=== PATIENT | female | born 2005 | race Caucasian/White ===

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

== ENCOUNTER 2024-04-22 20:42 | Emergency (ER) | payer OTHER ==
[2024-04-22 20:46] VITALS: BP 126/81; PULSE 80; RESP 18; TEMP 98.3; BMI 34.6
[2024-04-22 21:39] LABS: PH,URINE 6.5 (5.0-8.0); URINE APPEARANCE CLEAR; URINE BILIRUBIN NEGATIVE (NEGATIVE); URINE COLOR YELLOW; URINE GLUCOSE (UA) NEGATIVE (NEGATIVE); URINE KETONE NEGATIVE (NEGATIVE); URINE LEUK ESTERASE NEGATIVE (NEGATIVE); URINE NITRITE NEGATIVE (NEGATIVE); URINE PROTEIN NEGATIVE (NEGATIVE)
[2024-04-22 21:42] LABS: HCG,QUALITATIVE URINE Negative
== END 2024-04-22 22:23 | disposition home or self-care (01) ==
LOC: JERFT 20:42
DX: T19.2XXA Foreign body in vulva and vagina, initial encounter (principal); W50.0XXA Accidental hit or strike by another person, initial encounter
CPT/HCPCS: 81003; 84703; 87086; 87186; 99283-25